=== PATIENT | female | born 1950 | race African-American/Black ===

== ENCOUNTER 2022-03-09 19:24 | Emergency (ER) | payer OTHER ==
[~2022-03-09] VITALS: Ht 175.3 cm; Wt 66.3 kg
[2022-03-09 19:37] VITALS: BP 147/91
[2022-03-09 20:45] LABS: BASOPHILS % 0.7 % (0.0-2.0); EOSINOPHILS % 1.7 % (0.0-5.0); HEMATOCRIT. 40.4 % (36.0-48.0); HEMOGLOBIN. 12.9 g/dL (12.0-16.0); LYMPHOCYTES % 20.3 % (20.0-50.0); MEAN CORPUSCULAR HEMOGLOBIN 26.4 pg (28.0-32.0); MEAN CORPUSCULAR VOLUME 82.9 fL (81.0-99.0); MEAN PLATELET VOLUME 9.2 fl (7.4-10.4); NEUTROPHILS % 69.3 % (40.0-76.0); PLATELET 278 x1000/uL (130-400); RED BLOOD CELL COUNT 4.87 mill/uL (4.2-5.4)
[2022-03-09 20:50] LABS: CHLORIDE 112 mEq/L (98-107)
== END 2022-03-09 23:50 | disposition home or self-care (01) ==
LOC: ER 19:24
DX: R94.6 Abnormal results of thyroid function studies (principal); I49.9 Cardiac arrhythmia, unspecified
CPT/HCPCS: 36415; 71045; 80053; 84443; 84484; 85025; 93005; 99285